=== PATIENT | female | born 1970 | race Two or more races ===

== ENCOUNTER 2020-10-28 08:45 | Inpatient (IN) | payer OTHER ==
[~2020-10-28] VITALS: Ht 157.5 cm; Wt 61.7 kg
[2020-10-28] MEDS ORDERED: CLONAZEPAM1 MG PO (09:48)
[2020-10-28] MEDS ORDERED: TRAMADO PO (09:48)
[2020-11-04] MEDS ORDERED: TRAMADOL HCL50 MG PO (09:55)
[2020-11-07] MEDS ORDERED: TRAMADOL HCL50 MG PO (15:26)
[2020-11-07] MEDS ORDERED: COLACE100 MG PO (15:28)
[2020-11-07] MEDS ORDERED: NEURONTIN600 M1 PO (15:28)
== END 2020-11-07 17:28 | disposition home or self-care (01) | DRG 355 ==
LOC: SURH 11-04 08:45 → O/R 11-04 09:10 → SURH 11-04 09:15
PROVIDERS: ADMIT Surgery; ATTEND Surgery
PROC: 0WUF4JZ Supplement Abdominal Wall with Synthetic Substitute, Percutaneous Endoscopic Approach (ICD-10-PCS; principal; 2020-11-04 09:15)
DX: K43.6 Other and unspecified ventral hernia with obstruction, without gangrene (principal); K43.0 Incisional hernia with obstruction, without gangrene; K42.9 Umbilical hernia without obstruction or gangrene

== ENCOUNTER → 2020-12-16 15:00 | Outpatient (CLI) | payer OTHER ==
[~2020-12-16 15:00] MED LIST: CLONAZEPAM1 MG PO; COLACE100 MG PO; NEURONTIN600 M1 PO; TRAMADO PO; TRAMADOL HCL50 MG PO
== END | disposition home or self-care (01) ==
LOC: PPH VACUNA 15:00
DX: Z23 Encounter for immunization (principal)

== ENCOUNTER 2024-09-27 08:02 | Emergency (ER) | payer OTHER ==
[~2024-09-27] VITALS: Ht 157.5 cm; Wt 68.0 kg
[2024-09-27] MEDS ORDERED: DIPHENHYDRAMINE HCL 50 MG/ML VIAL 1ML IV STA (08:54)
[2024-09-27] MEDS ORDERED: FAMOTIDINE/PF 20 MG/2 ML VIAL IV PUSH STA (08:55)
[2024-09-27] MEDS ORDERED: METHYLPREDNISOLONE SOD SUCC 125 MG VIAL IV STA (08:57)
[2024-09-27] MEDS ORDERED: DIPHENHYDRAMINE HCL 50 MG/ML VIAL 1ML ONE (09:06)
[2024-09-27] MEDS ORDERED: FAMOTIDINE/PF 20 MG/2 ML VIAL ONE (09:06)
[2024-09-27] MEDS ORDERED: METHYLPREDNISOLONE SOD SUCC 125 MG VIAL ONE (09:06)
== END 2024-09-27 10:33 | disposition home or self-care (01) ==
LOC: ER 08:04
DX: L50.8 Other urticaria (principal)